=== PATIENT | male | born 1965 | race American Indian/Alaskan Native ===

== ENCOUNTER 2019-06-26 15:47 | Observation (INO) | payer OTHER ==
[2019-06-26 17:04] LABS: Basophils # (Auto) 0.1 K/mm3 (0.0-0.1); Basophils % (Auto) 1.3 % (0.0-1.8); Eosinophils # (Auto) 0.3 K/mm3 (0.0-0.4); Eosinophils % (Auto) 2.8 % (0.0-4.3); Hematocrit 22.5 % (35.5-45.6); Hemoglobin 7.8 gm/dl (11.8-15.2); Lymphocytes # (Auto) 2.1 K/mm3 (1.2-5.4); Lymphocytes % (Auto) 22.8 % (13.4-35.0); Mean Corpuscular HGB Conc 35 % (32-34); Mean Corpuscular Volume 103 fl (84-94); Monocytes # (Auto) 0.7 K/mm3 (0.0-0.8); Monocytes % (Auto) 8.1 % (0.0-7.3); Platelet Count 313 K/mm3 (140-440); Red Blood Count 2.18 M/mm3 (3.65-5.03); Red Cell Distribution Width 15.7 % (13.2-15.2)
[2019-06-26 17:26] LABS: Calcium 9.3 mg/dL (8.4-10.2)
[2019-06-26] MEDS ORDERED: PANTOPRAZOLE 40 MG INJ IV ONE (18:16)
--- NOTE | 2019-06-26 18:17 | Emergency Department Report ---
ED General Adult HPI - General Chief complaint: GI Bleed Stated complaint: BLACK BM Time Seen by Provider: 06/26/19 18:04 Source: patient, RN notes reviewed, old records reviewed Mode of arrival: Ambulatory Limitations: No Limitations - History of Present Illness Initial comments: Patient is a 53-year-old gentleman. He is not known to myself previously. He does not have a primary care doctor. 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 He presents to the ER today with a complaint of painless black tarry stool, x1 week, lightheadedness, dizziness, near syncope. He denies physical pain at this time. He takes aspirin occasionally, but denies alcohol use, NSAID use, and systemic anticoagulation. He is never had an endoscopy before that he is aware of. He typically receives hemodialysis Saturday, Saturday, Saturday. He had hemodialysis today as per his verbal report. He was sent here for evaluation of hemoglobin of 6.6. Symptoms intermittent, painless, do not radiate anywhere, and do not have exacerbating or relieving factors that he is aware of. There is no complaint of headache, neck pain, chest pain, abdominal pain. He is still lightheaded, feels tired and fatigued, and occasionally has shortness of breath. He is producing urine, and denies urinary symptoms. There is no complaint of extremity weakness and or numbness. -: Gradual, days(s) Severity scale (0 -10): 0 Quality: other Consistency: other Improves with: other Worsens with: other Associated Symptoms: other - Related Data Home Medications Medication Instructions Recorded Confirmed Last Taken amLODIPine 5 mg PO DAILY 10/24/18 10/24/18 10/23/18 Previous Rx's Medication Instructions Recorded Last Taken Type Acetaminophen [Acetaminophen TAB] 650 mg PO Q4H PRN tablet 11/01/18 Unknown Rx Fluconazole [Diflucan TAB] 100 mg PO QDAY #7 tablet 11/01/18 Unknown Rx Sodium Bicarbonate 1,300 mg PO TID #90 tablet 11/01/18 Unknown Rx hydrALAZINE [Apresoline TAB] 25 mg PO Q8HR #60 tab 11/01/18 Unknown Rx Allergies Allergy/AdvReac Type Severity Reaction Status Date / Time No Known Allergies Allergy Verified 06/26/19 15:51 ED Review of Systems ROS: Stated complaint: BLACK BM Other details as noted in HPI Constitutional: malaise, weakness. denies: fever Eyes: denies: eye discharge, vision change ENT: denies: congestion Respiratory: shortness of breath. denies: cough, wheezing Cardiovascular: syncope (Near syncope, but no actual loss of conscious). denies: chest pain Gastrointestinal: melena. denies: abdominal pain, nausea, vomiting, diarrhea, constipation, hematemesis, hematochezia Genitourinary: as per HPI. denies: urgency Musculoskeletal: as per HPI Skin: as per HPI Neurological: as per HPI, weakness Psychiatric: as per HPI Hematological/Lymphatic: as per HPI. denies: easy bleeding ED Past Medical Hx - Past Medical History Hx Hypertension: Yes Hx Congestive Heart Failure: Yes Hx HIV: No Additional medical history: ESRD - Social History Smoking Status: Never Smoker Substance Use Type: None - Medications Home Medications: Home Medications Medication Instructions Recorded Confirmed Last Taken Type amLODIPine 5 mg PO DAILY 10/24/18 10/24/18 10/23/18 History Acetaminophen [Acetaminophen TAB] 650 mg PO Q4H PRN tablet 11/01/18 Unknown Rx Fluconazole [Diflucan TAB] 100 mg PO QDAY #7 tablet 11/01/18 Unknown Rx Sodium Bicarbonate 1,300 mg PO TID #90 tablet 11/01/18 Unknown Rx hydrALAZINE [Apresoline TAB] 25 mg PO Q8HR #60 tab 11/01/18 Unknown Rx ED Physical Exam - General Limitations: No Limitations General appearance: alert, anxious - Head Head exam: Present: atraumatic, normocephalic - Eye Eye exam: Present: normal appearance (Bilateral conjunctiva are pale), PERRL, EOMI, other (Visual acuity intact to finger counting, color perception, reading at a close distance). Absent: conjunctival injection, nystagmus - ENT ENT exam: Present: normal exam, normal orophraynx, mucous membranes moist, normal external ear exam - Neck Neck exam: Present: normal inspection, full ROM. Absent: tenderness, meningismus - Respiratory Respiratory exam: Present: normal lung sounds bilaterally. Absent: respiratory distress - Cardiovascular Cardiovascular Exam: Present: normal rhythm, tachycardia, normal heart sounds. Absent: systolic murmur, diastolic murmur, rubs, gallop - GI/Abdominal GI/Abdominal exam: Present: soft. Absent: distended, tenderness, guarding, rebound, rigid, pulsatile mass - Rectal Rectal exam: Present: normal inspection, normal rectal tone, heme (+) stool, black stool, other (Chaperoned by nurse Aren Sibley). Absent: bloody stool, fecal impaction, hemorrhoids, mass, tenderness, prostate tenderness, prostate enlargement - Extremities Exam Extremities exam: Present: normal inspection (Left upper extremity fistula, without redness, pus, streaking or tenderness), full ROM, other (2+ pulses noted in the bilateral upper and lower extremities. There is no palpable cord. nega tive Homans sign. Muscular compartments are soft. The pelvis is stable.). Absent: pedal edema, calf tenderness - Back Exam Back exam: Present: normal inspection, full ROM. Absent: tenderness, CVA tenderness (R), CVA tenderness (L), paraspinal tenderness, vertebral tenderness - Neurological Exam Neurological exam: Present: alert, normal gait, other (No facial droop. Tongue midline. Extraocular movements intact bilaterally. Facial sensation intact to light touch in V1, V2, V3 distribution bilaterally. 5 and a 5 strength in 4 extremities. Sensation intact to light touch in 4 extremities.). Absent: motor sensory deficit - Psychiatric Psychiatric exam: Present: anxious - Skin Skin exam: Present: warm, dry, intact, normal color. Absent: rash ED Course Vital Signs 06/26/19 15:56 Temperature 97.6 F Pulse Rate 101 H Respiratory 13 Rate Blood Pressure 146/87 [Left] O2 Sat by Pulse 96 Oximetry ED Medical Decision Making - Lab Data Result diagrams: 06/26/19 16:13 06/26/19 16:13 Vital Signs 06/26/19 15:56 Temperature 97.6 F Pulse Rate 101 H Respiratory 13 Rate Blood Pressure 146/87 [Left] O2 Sat by Pulse 96 Oximetry Lab Results 06/26/19 06/26/19 Range/Units 16:13 16:13 WBC 9.2 (4.5-11.0) K/mm3 RBC 2.18 L (3.65-5.03) M/mm3 Hgb 7.8 L (11.8-15.2) gm/dl Hct 22.5 L (35.5-45.6) % MCV 103 H (84-94) fl MCH 36 H (28-32) pg MCHC 35 H (32-34) % RDW 15.7 H (13.2-15.2) % Plt Count 313 (140-440) K/mm3 Lymph % (Auto) 22.8 (13.4-35.0) % [place] % (Auto) 8.1 H (0.0-7.3) % Eos % (Auto) 2.8 (0.0-4.3) % Baso % (Auto) 1.3 (0.0-1.8) % Lymph # 2.1 (1.2-5.4) K/mm3 [place] # 0.7 (0.0-0.8) K/mm3 Eos # 0.3 (0.0-0.4) K/mm3 Baso # 0.1 (0.0-0.1) K/mm3 Seg Neutrophils % 65.0 (40.0-70.0) % Seg Neutrophils # 6.0 (1.8-7.7) K/mm3 Sodium 138 (137-145) mmol/L Potassium 3.7 (3.6-5.0) mmol/L Chloride 102.2 (98-107) mmol/L Carbon Dioxide 21 L (22-30) mmol/L Anion Gap 19 mmol/L BUN 17 (9-20) mg/dL Creatinine 4.1 H (0.8-1.5) mg/dL Estimated GFR 19 ml/min BUN/Creatinine Ratio 4 % Glucose 99 (75-100) mg/dL Calcium 9.3 (8.4-10.2) mg/dL - EKG Data -: EKG Interpreted by Ak EKG shows normal: sinus rhythm Rate: normal - EKG Data 06/26/19 18:39 EKG today shows sinus rhythm, 79 bpm, left ventricular hypertrophy, normal axis, QTC within normal limits, T wave inversion V2, poor R wave progression, motion artifact, negatively deflected QRS complex V4, the EKG is abnormal, there is no endorsement of chest pain, nonspecific changes when compared to prior, the EKG is not consistent with a STEMI - Radiology Data Radiology results: pending - Medical Decision Making Differential diagnosis, including but not limited to: GERD, gastritis, upper GI bleed, dysfunctional platelets Assessment and plan: 53-year-old gentleman who is afebrile with reassuring vital signs, clinically sober with a benign exam, dark brown/black stool that is strongly guaiac positive, with history and physical suggestive of upper GI bleed. Patient will be started on Protonix and desmopressin. Discussed with gastroenterology, Dr. Calvo, whose group will follow in consultation. We discussed the patient's history, physical, examination, and pertinent laboratory studies. Discussed with Dr. Langley, nephrology on-call, discussed patient's history, physical, pertinent laboratory studies and physical findings. Both of the aforementioned consultants will follow in consultation. Case presented to hospital physician, Dr. Marcelina Goss, who has accepted the patient to the medical service. Discussed plan of care for admission with the patient, who verbalized understanding, and who is amenable to this plan of care. Critical care attestation.: If time is entered above; I have spent that time in minutes in the direct care of this critically ill patient, excluding procedure time. ED Disposition Clinical Impression: UGIB (upper gastrointestinal bleed), Guaiac + stool, ESRD (end stage renal disease) Disposition: OP ADMIT IP TO THIS HOSP Is pt being admited?: Yes Does the pt Need Aspirin: No Condition: Serious Referrals: PRIMARY CARE,MD [Primary Care Provider] - 3-5 Days Forms: Accompanied Note
[2019-06-26] MEDS ORDERED: DESMOPRESSIN ACETATE IV ONE (18:30)
[2019-06-26] MEDS ORDERED: SODIUM CHLORIDE 0.9% IV ONE (18:30)
--- NOTE | 2019-06-26 18:58 | XRay Report ---
CHEST 1 VIEW INDICATION / CLINICAL INFORMATION: ugib near syncope. COMPARISON: 10/24/2018 FINDINGS: SUPPORT DEVICES: None. HEART / MEDIASTINUM: No significant abnormality. LUNGS / PLEURA: No significant pulmonary or pleural abnormality. No pneumothorax. ADDITIONAL FINDINGS: No significant additional findings. IMPRESSION: 1. No acute findings. Signer Name: Miguel Richards MD Signed: 06/26/2019 6:53 PM Workstation Name: [id number]
[2019-06-26 19:17] LABS: INR 1.04 (0.87-1.13)
[2019-06-26 19:18] LABS: Partial Thromboplastin Time 28.2 Sec. (24.2-36.6)
[2019-06-26] MEDS ORDERED: ONDANSETRON 4 MG/2 ML INJ IV PRN (23:53)
[2019-06-26] MEDS ORDERED: HYDROmorphone 1 MG/1 ML INJ IV PRN (23:53)
[2019-06-26] MEDS ORDERED: ACETAMINOPHEN 325 MG TAB PO PRN (23:53)
[2019-06-27 01:05] LABS: Hematocrit 20.6 % (35.5-45.6); Hemoglobin 7.1 gm/dl (11.8-15.2)
[2019-06-27] MEDS: PANTOPRAZOLE 80 MG in SODIUM CHLORIDE 0.9% 100 ML IV SCH ×2 (01:20→10:41)
--- NOTE | 2019-06-27 08:08 | Consultation ---
History of Present Illness - Reason for Consult Consult date: 06/27/19 end stage renal disease Requesting physician: GEORGINA FOSTER - History of Present Illness Patient is a 53-year-old gentleman. He is not known to myself previously. He does not have a primary care doctor. 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 He presents to the ER today with a complaint of painless black tarry stool, x1 week, lightheadedness, dizziness, near syncope. He denies physical pain at this time. He takes aspirin occasionally, but denies alcohol use, NSAID use, and systemic anticoagulation. He is never had an endoscopy before that he is aware of. He typically receives hemodialysis Saturday, Saturday, Saturday. He had hemodialysis today as per his verbal report. He was sent here for evaluation of hemoglobin of 6.6. Symptoms intermittent, painless, do not radiate anywhere, and do not have exacerbating or relieving factors that he is aware of. There is no complaint of headache, neck pain, chest pain, abdominal pain. He is still lightheaded, feels tired and fatigued, and occasionally has shortness of breath. He is producing urine, and denies urinary symptoms. There is no complaint of extremity weakness and or numbness. -: Gradual, days(s) Severity scale (0 -10): 0 Quality: other Consistency: other Improves with: other Worsens with: other Associated Symptoms: other ROS: Stated complaint: BLACK BM Other details as noted in HPI Constitutional: malaise, weakness. denies: fever Eyes: denies: eye discharge, vision change ENT: denies: congestion Respiratory: shortness of breath. denies: cough, wheezing Cardiovascular: syncope (Near syncope, but no actual loss of conscious). denies: chest pain Gastrointestinal: melena. denies: abdominal pain, nausea, vomiting, diarrhea, constipation, hematemesis, hematochezia Genitourinary: as per HPI. denies: urgency Musculoskeletal: as per HPI Skin: as per HPI Neurological: as per HPI, weakness Psychiatric: as per HPI Hematological/Lymphatic: as per HPI. denies: easy bleeding - Past Medical History Hx Hypertension: Yes Hx Congestive Heart Failure: Yes Hx HIV: No Additional medical history: ESRD - Social History Smoking Status: Never Smoker Substance Use Type: None Medications and Allergies Allergies Allergy/AdvReac Type Severity Reaction Status Date / Time No Known Allergies Allergy Verified 06/26/19 15:51 Home Medications Medication Instructions Recorded Confirmed Last Taken Type amLODIPine 5 mg PO DAILY 10/24/18 06/27/19 06/03/19 History Acetaminophen [Acetaminophen TAB] 650 mg PO Q4H PRN tablet 11/01/18 06/27/19 06/25/19 Rx Fluconazole [Diflucan TAB] 100 mg PO QDAY #7 tablet 11/01/18 06/27/19 Unknown Rx Sodium Bicarbonate 1,300 mg PO TID #90 tablet 11/01/18 06/27/19 06/03/19 Rx hydrALAZINE [Apresoline TAB] 25 mg PO Q8HR #60 tab 11/01/18 06/27/19 06/03/19 Rx Active Meds: Active Medications Acetaminophen (Tylenol) 650 mg PO Q4H PRN PRN Reason: Pain MILD(1-3)/Fever >100.5/RAMIREZ Hydromorphone HCl (Dilaudid) 0.5 mg IV Q3H PRN PRN Reason: Pain , Severe (7-10) Pantoprazole Sodium 80 mg/ (Sodium Chloride) 100 mls @ 10 mls/hr IV DIRECT [facility] Last Admin: 06/27/19 01:20 Dose: 8 mg/hr, 10 mls/hr Documented by: Ondansetron HCl (Zofran) 4 mg IV Q8H PRN PRN Reason: Nausea And Vomiting Sodium Chloride (Sodium Chloride Flush Syringe 10 Ml) 10 ml IV BID [facility] Last Admin: 06/27/19 01:31 Dose: 10 ml Documented by: Sodium Chloride (Sodium Chloride Flush Syringe 10 Ml) 10 ml IV PRN PRN PRN Reason: LINE FLUSH Exam - Vital Signs Vital signs: Vital Signs Temp Pulse Resp BP Pulse Ox 97.6 F 101 H 13 146/87 96 06/26/19 15:56 06/26/19 15:56 06/26/19 15:56 06/26/19 15:56 06/26/19 15:56 - Physical Exam Narrative exam: - General Limitations: No Limitations General appearance: alert, anxious - Head Head exam: Present: atraumatic, normocephalic - Eye Eye exam: Present: normal appearance (Bilateral conjunctiva are pale), PERRL, EOMI, other (Visual acuity intact to finger counting, color perception, reading at a close distance). Absent: conjunctival injection, nystagmus - ENT ENT exam: Present: normal exam, normal orophraynx, mucous membranes moist, normal external ear exam - Neck Neck exam: Present: normal inspection, full ROM. Absent: tenderness, meningismus - Respiratory Respiratory exam: Present: normal lung sounds bilaterally. Absent: respiratory distress - Cardiovascular Cardiovascular Exam: Present: normal rhythm, tachycardia, normal heart sounds. Absent: systolic murmur, diastolic murmur, rubs, gallop - GI/Abdominal GI/Abdominal exam: Present: soft. Absent: distended, tenderness, guarding, rebound, rigid, pulsatile mass - Rectal Rectal exam: Present: normal inspection, normal rectal tone, heme (+) stool, black stool, other (Chaperoned by nurse Aren Sibley). Absent: bloody stool, fecal impaction, hemorrhoids, mass, tenderness, prostate tenderness, prostate enlargement - Extremities Exam Extremities exam: Present: normal inspection (Left upper extremity fistula, without redness, pus, streaking or tenderness), full ROM, other (2+ pulses noted in the bilateral upper and lower extremities. There is no palpable cord. negative Homans sign. Muscular compartments are soft. The pelvis is stable.). Absent: pedal edema, calf tenderness - Back Exam Back exam: Present: normal inspection, full ROM. Absent: tenderness, CVA tenderness (R), CVA tenderness (L), paraspinal tenderness, vertebral tenderness - Neurological Exam Neurological exam: Present: alert, normal gait, other (No facial droop. Tongue midline. Extraocular movements intact bilaterally. Facial sensation intact to light touch in V1, V2, V3 distribution bilaterally. 5 and a 5 strength in 4 extremities. Sensation intact to light touch in 4 extremities.). Absent: motor sensory deficit - Psychiatric Psychiatric exam: Present: anxious Results - Lab Results 06/27/19 00:38 06/26/19 16:13 Most recent lab results Calcium 9.3 mg/dL (8.4-10.2) 06/26/19 16:13 Magnesium 2.00 mg/dL (1.7-2.3) 06/26/19 18:35 Assessment and Plan IMpression: * ESRD * anemia abl poa * HTN * gi bleeding Plan: * resume hd q MWF * no heparin with HD * epogen with HD * prn prbcs * uf as tolerated * strict i/os * Gi consultation
[2019-06-27] MEDS ORDERED: SODIUM CHLORIDE 0.9% 100 ML IV PRN (08:12)
[2019-06-27] MEDS ORDERED: EPOETIN ALFA 20,000 UNIT/1 ML INJ IV PRN (08:12)
[2019-06-27] MEDS ORDERED: ALBUMIN HUMAN 25% (25 GM/100 ML) INJ IV PRN (08:12)
--- NOTE | 2019-06-27 08:12 | Event Note ---
Date: 06/26/19 See H/p in reports GI BLeed ESRD
--- NOTE | 2019-06-27 08:14 | Progress Note ---
Assessment and Plan Assessment and plan: Patient is a 53 yo man with a history of hypertension and ESRD on HD MWF s/p renal biopsy on 10/29/2018 (I do not see pathology report in EMR but Dr. Davis's progress note on 10/30/2018 says "Discussed with pathologist biopsy with some concern for cryoglobulinemia however 85% interstitial fibrosis and a ppears to be end stage kidney cannot rule out autoimmune aetiology versus paraproteinemias.) who presents to [facility] ER with black tarry stools and lightheadedness. At HD center his hemoglobin was report to be 6.6. He was admitted on 06/26/[address] Goss. * hgb 7.8-->7.1 (mcv 103), Cr 4.1, normal PT/PTT * +FOBT stool * pCXR Impression: No acute findings Symptomatic Acute on chronic anemia with blood loss anemia : consulted GI Acute GIB, suspect upper gi: treat with IV PPI ESRD on HD: consulted Nephrology History Interval history: Patient was seen and examined. Follow-up on current diagnosis acute blood loss anemia. Overnight uneventful as no events directly reported to me. Patient denies any chest pain, shortness breath, nausea/vomiting or severe headaches. Imaging, nursing note, chart, labs and old chart reviewed. Discussed with patient. Hospitalist Physical - Physical exam Narrative exam: Gen: WDWN, NAD, Awake, Alert, Orientated HEENT: NCAT, EOMI, PERRL, OP Clear Neck: supple, no adenopathy, no thyromegaly, no JVD CVS/Heart: RRR, normal S1S2, pulses present bilaterally Chest/Lungs: CTA B, Symmetrical chest expansion, good air entry bilaterally GI/Abdomen: soft, NTND, good bowel sounds, no guarding or rebound /Bladder: no suprapubic tenderness, no CVA or paraspinal tenderness Extermity/Skin: no c/c/e, no obvious rash MSK: FROM x 4 Neuro: CN 2-12 grossly intact, no new focal deficits Psych: calm - Constitutional Vitals: Temp Pulse Resp BP Pulse Ox 98.3 F 79 16 120/79 100 06/27/19 03:21 06/27/19 06:08 06/27/19 03:21 06/27/19 03:21 06/27/19 03:21 Results - Labs CBC & Chem 7: 06/27/19 00:38 06/26/19 16:13 Labs: Laboratory Last Values WBC 9.2 K/mm3 (4.5-11.0) 06/26/19 16:13 RBC 2.18 M/mm3 (3.65-5.03) L 06/26/19 16:13 Hgb 7.1 gm/dl (11.8-15.2) L 06/27/19 00:38 Hct 20.6 % (35.5-45.6) L 06/27/19 00:38 MCV 103 fl (84-94) H 06/26/19 16:13 MCH 36 pg (28-32) H 06/26/19 16:13 MCHC 35 % (32-34) H 06/26/19 16:13 RDW 15.7 % (13.2-15.2) H 06/26/19 16:13 Plt Count 313 K/mm3 (140-440) 06/26/19 16:13 Lymph % (Auto) 22.8 % (13.4-35.0) 06/26/19 16:13 [place] % (Auto) 8.1 % (0.0-7.3) H 06/26/19 16:13 Eos % (Auto) 2.8 % (0.0-4.3) 06/26/19 16:13 Baso % (Auto) 1.3 % (0.0-1.8) 06/26/19 16:13 Lymph # 2.1 K/mm3 (1.2-5.4) 06/26/19 16:13 [place] # 0.7 K/mm3 (0.0-0.8) 06/26/19 16:13 Eos # 0.3 K/mm3 (0.0-0.4) 06/26/19 16:13 Baso # 0.1 K/mm3 (0.0-0.1) 06/26/19 16:13 Seg Neutrophils % 65.0 % (40.0-70.0) 06/26/19 16:13 Seg Neutrophils # 6.0 K/mm3 (1.8-7.7) 06/26/19 16:13 PT 13.7 Sec. (12.2-14.9) 06/26/19 18:35 INR 1.04 (0.87-1.13) 06/26/19 18:35 APTT 28.2 Sec. (24.2-36.6) 06/26/19 18:35 Sodium 138 mmol/L (137-145) 06/26/19 16:13 Potassium 3.7 mmol/L (3.6-5.0) 06/26/19 16:13 Chloride 102.2 mmol/L (98-107) 06/26/19 16:13 Carbon Dioxide 21 mmol/L (22-30) L 06/26/19 16:13 Anion Gap 19 mmol/L 06/26/19 16:13 BUN 17 mg/dL (9-20) 06/26/19 16:13 Creatinine 4.1 mg/dL (0.8-1.5) H 06/26/19 16:13 Estimated GFR 19 ml/min 06/26/19 16:13 BUN/Creatinine Ratio 4 % 06/26/19 16:13 Glucose 99 mg/dL (75-100) 06/26/19 16:13 Calcium 9.3 mg/dL (8.4-10.2) 06/26/19 16:13 Magnesium 2.00 mg/dL (1.7-2.3) 06/26/19 18:35 Total Creatine Kinase 209 units/L (55-170) H 06/26/19 18:35 Blood Type AB POSITIVE 06/26/19 18:35 Antibody Screen Negative 06/26/19 18:35 Microbiology: Microbiology 06/26/19 Unknown Stool - Stool Aspirate Stool Occult Blood (RIDDHI) - Final Chinchilla/IV: Voiding Method Indwelling Catheter IV Catheter Type [Left Chest] Peripheral IV Active Medications - Current Medications Current Medications: Generic Name Dose Route Start Last Admin Trade Name Freq PRN Reason Stop Dose Admin Acetaminophen 650 mg 06/26/19 23:53 Tylenol PO Q4H PRN Pain MILD(1-3)/Fever >100.5/RAMIREZ Hydromorphone HCl 0.5 mg 06/26/19 23:53 Dilaudid IV Q3H PRN Pain , Severe (7-10) Pantoprazole Sodium 80 mg/ 100 mls @ 10 mls/hr 06/26/19 23:45 06/27/19 01:20 Sodium Chloride IV 8 mg/hr DIRECT ESTER 10 mls/hr Administration 8 MG/HR Ondansetron HCl 4 mg 06/26/19 23:53 Zofran IV Q8H PRN Nausea And Vomiting Sodium Chloride 10 ml 06/26/19 23:45 06/27/19 01:31 Sodium Chloride Flush Syringe 10 Ml IV 10 ml BID ESTER Administration Sodium Chloride 10 ml 06/26/19 23:53 Sodium Chloride Flush Syringe 10 Ml IV PRN PRN LINE FLUSH
--- NOTE | 2019-06-27 09:26 | History and Physical Report ---
CHIEF COMPLAINT: Black stools for 1 day. HISTORY OF PRESENT ILLNESS: A 53-year-old male ____ end-stage renal disease and hypertension, comes in for black tarry stools of 1 day duration. Also, complains of lightheadedness, dizziness and near syncope. He takes aspirin occasionally. Denies any alcohol use or anti-inflammatory use. Never had endoscopy and never had a GI bleed in the past. Goes for dialysis on Saturday, Saturday and Saturday. His nephrology group is [facility] (formerly [facility]). The patient was sent for evaluation of hemoglobin of 6.6. The patient feels lightheaded and feels very weak and fatigued. The patient has ____ urine and has no urinary symptoms. No chest pain. No shortness of breath. PAST MEDICAL HISTORY: As mentioned, hypertension, congestive heart failure and end-stage renal disease. SOCIAL HISTORY: Never a smoker. PAST SURGICAL HISTORY: AV fistula. FAMILY HISTORY: Hypertension. CURRENT MEDICATIONS: Amlodipine 5 mg once a day, hydralazine 25 mg p.o. q.8 hours, Diflucan 100 mg once a day, sodium bicarbonate 1300 mg p.o. t.i.d. REVIEW OF SYSTEMS: Significant for black tarry stools and feeling weak and lightheaded and near syncope. Otherwise, review of systems negative. PHYSICAL EXAMINATION: GENERAL: Middle-aged male, cooperative during examination. VITAL SIGNS: Blood pressure is 129/76, temperature is 98.6, pulse is 76, respirations are 16. HEENT: Pale mucous membranes. NECK: Supple, no lymphadenopathy, no thyromegaly. LUNGS: Clear to auscultation and percussion. Good air entry. CARDIOVASCULAR: S1, S2 heard. No gallop, no murmur, no rub. Apical impulse in left fifth intercostal space and midclavicular line. ABDOMEN: Soft and benign. RECTAL: Positive for occult blood. Bowel sounds are normal. EXTREMITIES: Good pedal pulses. CENTRAL NERVOUS SYSTEM: Alert and oriented x 4, nonfocal exam. LABORATORY DATA: Significant for H and H of 7.8 and 22.5. White count of 9200, platelet count is 313,000. Electrolytes are normal except for BUN and creatinine of ____ 17 and 4.1. Total CK is 209. Chest x-ray was normal. ASSESSMENT AND PLAN: 1. Upper gastrointestinal bleed. The patient started on Protonix drip. H and H q. 8 hours. GI consult. Possible endoscopy in the morning. 2. End-stage renal disease. Continue hemodialysis. The patient is kept n.p.o. for the GI procedure. 3. Acute anemia, transfuse as necessary. Check H and H q. 8 hours. Transfuse if around 7 and below. 4. Hypertension. We will hold the blood pressure medication as blood pressure is borderline. If blood pressure goes up, we will start him on Catapres patch. At this point, I did not start the Catapres patch because the blood pressure is borderline. 5. Deep venous thrombosis prophylaxis, only SCDs and gastrointestinal prophylaxis. JOB# [id number] MARCELO/KAMILLA
[2019-06-27 10:53] LABS: Albumin 3.6 g/dL (3.9-5); Calcium 8.8 mg/dL (8.4-10.2)
[2019-06-27 10:55] LABS: % Iron Saturation 23.04 %
[2019-06-27 10:57] LABS: Basophils # (Auto) 0.1 K/mm3 (0.0-0.1); Basophils % (Auto) 1.3 % (0.0-1.8); Eosinophils # (Auto) 0.2 K/mm3 (0.0-0.4); Eosinophils % (Auto) 3.5 % (0.0-4.3); Hematocrit 20.3 % (35.5-45.6); Lymphocytes # (Auto) 1.2 K/mm3 (1.2-5.4); Lymphocytes % (Auto) 20.7 % (13.4-35.0); Mean Corpuscular HGB Conc 35 % (32-34); Mean Corpuscular Volume 104 fl (84-94); Monocytes # (Auto) 0.5 K/mm3 (0.0-0.8); Platelet Count 268 K/mm3 (140-440); Red Cell Distribution Width 15.4 % (13.2-15.2)
[2019-06-27 11:06] LABS: Hepatitis C Virus Antibody Non-Reactive (NonReactive)
[2019-06-27 11:16] LABS: Red Blood Count 1.95 M/mm3 (3.65-5.03)
[2019-06-27 12:02] LABS: Hepatitis B Surface Antigen Non-Reactive (Negative)
--- NOTE | 2019-06-27 12:25 | Gastroenterology Consultation ---
History of Present Illness - Reason for Consult Consult date: 06/27/19 Melena Requesting physician: JOHANNY RIVERA - History of Present Illness The patient is a 53 yo male admitted with melena x 1 week, and acute on chronic anemia. He says about 7 days ago his stools turned black, but did not change in frequency (1-2/day). He has had no emesis, or N/V/abdominal pain. He denies prior endoscopy or transfusion, and no prior hx of GI bleeding. He is not sure why he was started on HD last year (but biopsy looks like glomerulonephritis). He has no family hx of GI malignancy. He does not take chronic PPI therapy and denies GERD sx. He has not had any recent weight loss, and says he is compliant with HD. Past History Past Medical History: ESRD (On TIW HD), hypertension Past Surgical History: Other (Vascular for HD) Social history: denies: smoking, alcohol abuse Family history: hypertension Medications and Allergies Allergies Allergy/AdvReac Type Severity Reaction Status Date / Time No Known Allergies Allergy Verified 06/26/19 15:51 Home Medications Medication Instructions Recorded Confirmed Last Taken Type amLODIPine 5 mg PO DAILY 10/24/18 06/27/19 06/03/19 History Acetaminophen [Acetaminophen TAB] 650 mg PO Q4H PRN tablet 11/01/18 06/27/19 Rx Fluconazole [Diflucan TAB] 100 mg PO QDAY #7 tablet 11/01/18 06/27/19 Unknown Rx Sodium Bicarbonate 1,300 mg PO TID #90 tablet 11/01/18 06/27/19 06/03/19 Rx hydrALAZINE [Apresoline TAB] 25 mg PO Q8HR #60 tab 11/01/18 06/27/19 06/03/19 Rx Active Meds: Active Medications Acetaminophen (Tylenol) 650 mg PO Q4H PRN PRN Reason: Pain MILD(1-3)/Fever >100.5/RAMIREZ Albumin Human (Alburx 25% (Albumin)) 25 gm IV CANDI PRN PRN Reason: Hypotension Epoetin West (Procrit) 20,000 unit IV CANDI PRN PRN Reason: hemodialysis Hydromorphone HCl (Dilaudid) 0.5 mg IV Q3H PRN PRN Reason: Pain , Severe (7-10) Pantoprazole Sodium 80 mg/ (Sodium Chloride) 100 mls @ 10 mls/hr IV DIRECT [facility] Last Admin: 06/27/19 10:41 Dose: 8 mg/hr, 10 mls/hr Documented by: Sodium Chloride (Nacl 0.9%) 100 mls @ 999 mls/hr IV CANDI PRN PRN Reason: Hypotension Ondansetron HCl (Zofran) 4 mg IV Q8H PRN PRN Reason: Nausea And Vomiting Sodium Chloride (Sodium Chloride Flush Syringe 10 Ml) 10 ml IV BID [facility] Last Admin: 06/27/19 10:42 Dose: 10 ml Documented by: Sodium Chloride (Sodium Chloride Flush Syringe 10 Ml) 10 ml IV PRN PRN PRN Reason: LINE FLUSH I HAVE REVIEWED AND RECONCILED MEDICATIONS Review of Systems - Review of Systems All systems: negative (as noted in the HPI.) Exam - Constitutional Vital Signs: Temp Pulse Resp BP Pulse Ox 98.6 F 84 18 112/63 100 06/27/19 09:52 06/27/19 09:52 06/27/19 09:52 06/27/19 09:52 06/27/19 03:21 General appearance: no acute distress - EENT Eyes: PERRL, EOM intact ENT: hearing intact, clear oral mucosa, poor dentition - Neck Neck: supple, normal ROM - Respiratory Respiratory effort: normal Respiratory: bilateral: CTA - Cardiovascular Rhythm: regular Heart Sounds: Present: S1 & S2 - Gastrointestinal General gastrointestinal: Present: soft, non-tender, non-distended Rectal Exam: stool dark - Integumentary Integumentary: Present: clear, warm, dry - Neurologic Neurological: alert and oriented x3 - Labs CBC & Chem 7: 06/27/19 10:05 06/27/19 10:05 Lab Results: Laboratory Results - last 24 hr 06/26/19 06/26/19 06/26/19 16:13 16:13 18:35 WBC 9.2 RBC 2.18 L Hgb 7.8 L Hct 22.5 L MCV 103 H MCH 36 H MCHC 35 H RDW 15.7 H Plt Count 313 Lymph % (Auto) 22.8 [place] % (Auto) 8.1 H Eos % (Auto) 2.8 Baso % (Auto) 1.3 Lymph # 2.1 [place] # 0.7 Eos # 0.3 Baso # 0.1 Seg Neutrophils % 65.0 Seg Neutrophils # 6.0 PT 13.7 INR 1.04 APTT 28.2 Sodium 138 Potassium 3.7 Chloride 102.2 Carbon Dioxide 21 L Anion Gap 19 BUN 17 Creatinine 4.1 H Estimated GFR 19 BUN/Creatinine Ratio 4 Glucose 99 Calcium 9.3 Magnesium Iron TIBC % Saturation Transferrin Total Bilirubin AST ALT Alkaline Phosphatase Total Creatine Kinase Total Protein Albumin Albumin/Globulin Ratio Hepatitis A IgM Ab Hep Bs Antigen Hep B Core IgM Ab Hepatitis C Antibody Blood Type Antibody Screen 06/26/19 06/26/19 06/27/19 18:35 18:35 00:38 WBC RBC Hgb 7.1 L Hct 20.6 L MCV MCH MCHC RDW Plt Count Lymph % (Auto) [place] % (Auto) Eos % (Auto) Baso % (Auto) Lymph # [place] # Eos # Baso # Seg Neutrophils % Seg Neutrophils # PT INR APTT Sodium Potassium Chloride Carbon Dioxide Anion Gap BUN Creatinine Estimated GFR BUN/Creatinine Ratio Glucose Calcium Magnesium 2.00 Iron TIBC % Saturation Transferrin Total Bilirubin AST ALT Alkaline Phosphatase Total Creatine Kinase 209 H Total Protein Albumin Albumin/Globulin Ratio Hepatitis A IgM Ab Hep Bs Antigen Hep B Core IgM Ab Hepatitis C Antibody Blood Type AB POSITIVE Antibody Screen Negative 06/27/19 06/27/19 06/27/19 10:05 10:05 10:05 WBC 5.6 RBC 1.95 L Hgb 7.0 L Hct 20.3 L MCV 104 H MCH 36 H MCHC 35 H RDW 15.4 H Plt Count 268 Lymph % (Auto) 20.7 [place] % (Auto) 8.0 H Eos % (Auto) 3.5 Baso % (Auto) 1.3 Lymph # 1.2 [place] # 0.5 Eos # 0.2 Baso # 0.1 Seg Neutrophils % 66.5 Seg Neutrophils # 3.7 PT INR APTT Sodium 139 Potassium 4.2 Chloride 103.2 Carbon Dioxide 27 Anion Gap 13 BUN 24 H Creatinine 5.6 H Estimated GFR 13 BUN/Creatinine Ratio 4 Glucose 94 Calcium 8.8 Magnesium Iron 44 L TIBC 191 L % Saturation 23.04 Transferrin 163 L Total Bilirubin 0.30 AST 17 ALT 10 Alkaline Phosphatase 45 Total Creatine Kinase Total Protein 7.0 Albumin 3.6 L Albumin/Globulin Ratio 1.1 Hepatitis A IgM Ab Hep Bs Antigen Hep B Core IgM Ab Hepatitis C Antibody Blood Type Antibody Screen 06/27/19 10:05 WBC RBC Hgb Hct MCV MCH MCHC RDW Plt Count Lymph % (Auto) [place] % (Auto) Eos % (Auto) Baso % (Auto) Lymph # [place] # Eos # Baso # Seg Neutrophils % Seg Neutrophils # PT INR APTT Sodium Potassium Chloride Carbon Dioxide Anion Gap BUN Creatinine Estimated GFR BUN/Creatinine Ratio Glucose Calcium Magnesium Iron TIBC % Saturation Transferrin Total Bilirubin AST ALT Alkaline Phosphatase Total Creatine Kinase Total Protein Albumin Albumin/Globulin Ratio Hepatitis A IgM Ab Non-reactive Hep Bs Antigen Non-reactive Hep B Core IgM Ab Non-reactive Hepatitis C Antibody Non-reactive Blood Type Antibody Screen Assessment and Plan - Patient Problems (1) Melena Current Visit: Yes Status: Acute Plan to address problem: - Likely PUD v gastritis. - Will plan EGD, and continue current PPI therapy. - Avoid NSAIDs for now. - Given chronic anemia (baseline hct about 24, would not transfuse with his stable vitals. - Further recs after EGD.
[2019-06-27] MEDS ORDERED: WATER FOR IRRIG STERILE 250 ML BOTTLE IR ONE (13:23)
[2019-06-27] MEDS ORDERED: SODIUM CHLORIDE 0.9% 1000 ML 1,000 ML ONE (13:23)
[2019-06-27] MEDS ORDERED: WATER FOR IRRIG STERILE 1,000 ML BOTTLE ONE (13:23)
[2019-06-27] MEDS ORDERED: SODIUM CHLORIDE 0.9% 1000 ML 1,000 ML IV SCH (14:00)
[2019-06-27] MEDS ORDERED: propofoL 200 MG/20 ML VIAL IV ONE (14:25)
--- NOTE | 2019-06-27 14:40 | Post Operative Note ---
Pre-op diagnosis: Melena Post-op diagnosis: other (DU, Gastritis) Findings: 1. 4mm white-based DU, low risk to rebleed 2. Moderate erosive gastritis, antrum of stomach 3. Small hiatal hernia 4. LA Grade B erosive esophagitis Procedure: EGD with cold biopsy Anesthesia: MAC Surgeon: MAMADOU RICO Estimated blood loss: minimal Pathology: list (1. Gastric antrum, r/o H pylori) Specimen disposition: to lab Condition: stable Disposition: floor (Recs: 1. Protonix daily therapy, and advance to renal diet. 2. OK to d/c home, and may f/u in the clinic to go over biopsy results. 3. Cardiac ASA is OK, but should avoid all other NSAIDs. 4. Will sign off; please call with questions.)
--- NOTE | 2019-06-27 14:46 | Anesthesia Consultation ---
Anesthesia Consult and Med Hx Date of service: 06/27/19 - Airway Anesthetic Teeth Evaluation: Poor, Chipped ROM Head & Neck: Adequate Mental/Hyoid Distance: Adequate Mallampati Class: Class II Intubation Access Assessment: Good - Pre-Operative Health Status ASA Pre-Surgery Classification: ASA3, Emergency Proposed Anesthetic Plan: MAC - Pulmonary Hx Smoking: No Hx Asthma: No COPD: No Hx Pneumonia: No Hx Sleep Apnea: No (high score pricila) - Cardiovascular System Hx Hypertension: Yes (+2FS) Hx Coronary Artery Disease: No Hx Heart Attack/AMI: No Hx Angina: No Hx Percutaneous Transluminal Coronary Angioplasty (PTCA): No Hx Pacemaker: No Hx Internal Defibrillator: No Hx Valvular Heart Disease: No Hx Heart Murmur: No Hx Peripheral Vascular Disease: No - Central Nervous System Hx Seizures: No CVA: No Hx Psychiatric Problems: No - Gastrointestinal Hx Ulcer: No - Endocrine Hx Renal Disease: No Hx End Stage Renal Disease: Yes (Last HD yesterday) Hx Cirrhosis: No Hx Liver Disease: No Hx Hypothyroidism: No Hx Hyperthyroidism: No - Hematic Hx Anemia: Yes Hx Sickle Cell Disease: No - Other Systems Hx Cancer: No
--- NOTE | 2019-06-27 14:46 | Anesthesia Day of Surgery ---
Anesthesia Day of Surgery - Day of Surgery Patient Examined: Yes Patient H&P Reviewed: Yes Patient is NPO: Yes
--- NOTE | 2019-06-27 14:47 | Post Anesthesia Evaluation ---
- Post Anesthesia Evaluation Patient Participated: Yes Airway Patent: Yes Stable Respiratory Function: Yes Nausea/Vomiting: No Temp > 96.8F: Yes Pain Manageable: Yes Adequeate Hydration: Yes Anesthesia Complications: No Block Receding Appropriately: Not Applicable Patient on Ventilator: No
[2019-06-27] MEDS ORDERED: PANTOPRAZOLE 40 MG TAB PO SCH (15:00)
--- NOTE | 2019-06-27 15:21 | Operative Report ---
ENDOSCOPY DOCUMENT PROCEDURE PERFORMED: Esophagogastroduodenoscopy with cold biopsy. PREOPERATIVE DIAGNOSIS: Melena. POSTOPERATIVE DIAGNOSES: Duodenal ulcer and gastritis. ENDOSCOPIST: Tomasz Calvo MD. INSTRUMENT: Olympus video endoscope. MEDICATIONS: MAC anesthesia by [facility]. COMPLICATIONS: No apparent complications. ESTIMATED BLOOD LOSS: Minimal. SPECIMENS: Gastric antrum, rule out H. pylori. IMPLANTS: None. ASSISTANTS: None. CONDITION AT COMPLETION: Stable. TECHNIQUE: The patient was informed of the risks and benefits of the procedure. He signed the informed consent to proceed. He was placed in the left lateral decubitus position. The above sedative medications were given. His vital signs remained stable throughout the procedure. The endoscope was advanced under direct visualization to the second portion of the duodenum. At that point, the bowel was insufflated and the endoscope was slowly withdrawn. FINDINGS: 1. A 4-mm white-based ulcer in the duodenal bulb, would be considered low risk to rebleed as there was no evidence of visible vessel. 2. Moderate erosive gastritis in the antrum of the stomach, status post cold biopsy. 3. Small hiatal hernia. 4. LA grade B erosive esophagitis, likely from chronic acid reflux. RECOMMENDATIONS: 1. Protonix daily therapy and advance to renal diet. 2. Okay to discharge the patient home and the patient may follow up in the clinic to go over the biopsy results. 3. Cardiac aspirin daily therapy is okay, but the patient should avoid all other nonsteroidal anti-inflammatory drugs. 4. We will sign off; please call with questions. JOB# [id number] INGA/NTS
[2019-06-27 15:22] VITALS: BP 115/72
--- NOTE | 2019-06-27 16:33 | Discharge Summary ---
Providers - Providers Date of Admission: 06/26/19 22:42 Date of discharge: 06/27/19 Attending physician: JOHANNY RIVERA 06/26/19 18:15 Consult to Physician [CONS] Urgent Comment: Dr. Craft spoke with Dr. Rico @ [phone] Consulting Provider: MAMADOU RICO Physician Instructions: Reason For Exam: ugib 06/26/19 18:16 Consult to Physician [CONS] Urgent Comment: Dr. Craft spoke with Dr. 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 4mm white-based DU, low risk to rebleed 2. Moderate erosive gastritis, antrum of stomach 3. Small hiatal hernia 4. LA Grade B erosive esophagitis Procedure: EGD with cold biopsy Anesthesia: MAC Surgeon: MAMADOU RICO Estimated blood loss: minimal Pathology: list (1. Gastric antrum, r/o H pylori) Specimen disposition: to lab Condition: stable Disposition: floor (Recs: 1. Protonix daily therapy, and advance to renal diet. 2. OK to d/c home, and may f/u in the clinic to go over biopsy results. 3. Cardiac ASA is OK, but should avoid all other NSAIDs. 4. Will sign off; please call with questions.) Addendum entered and electronically signed by MAMADOU RICO MD 06/27/19 14:43: Addendum to findings: Cold biopsy taken of gastric antrum. Hospital course: Patient is a 53 yo man with a history of hypertension and ESRD on HD MWF s/p renal biopsy on 10/29/2018 (I do not see pathology report in EMR but Dr. Davis's progress note on 10/30/2018 says "Discussed with pathologist biopsy with some concern for cryoglobulinemia however 85% interstitial fibrosis and appears to be end stage kidney cannot rule out autoimmune aetiology versus paraproteinemias.) who presents to [facility] ER with black tarry stools and lightheadedness. At HD center his hemoglobin was report to be 6.6. He was admitted on 06/26/[address] Goss. Hospital coarse: 06/27/2019: Patient went for EGD which found 4mm duodenal ulcer/erosive gastritis/LA grade B erosive esophagitis and small hiatal hernia==> "(Recs: 1. Protonix daily therapy, and advance to renal diet. 2. OK to d/c home, and may f/u in the clinic to go over biopsy results. 3. Cardiac ASA is OK, but should avoid all other NSAIDs. 4. Will sign off; please call with questions.)" per GI. * hgb 7.8-->7.1 (mcv 103), Cr 4.1, normal PT/PTT * +FOBT stool * pCXR Impression: No acute findings Discharge Diagnoses: Acute Upper GI hemorrhage due to Duodenal Ulcer Symptomatic Acute on chronic anemia with blood loss anemia : consulted GI Acute GIB, suspect upper gi: treat with IV PPI ESRD on HD: consulted Nephrology Moderate Malnutrition, poa: supplemental shakes and MVI with iron Disposition: DC-01 TO HOME OR SELFCARE Time spent for discharge: 35 minutes Core Measure Documentation - Palliative Care Palliative Care/ Comfort Measures: Not Applicable - Core Measures Any of the following diagnoses?: none - VTE Discharge Requirements Deep Vein Thrombosis/Pulmonary Embolism Present on Admission: No Has pt received <5 days of overlap therapy or INR<2.0: No Anticoagulant overlap therapy prescribed at discharge: No Contraindication No Overlap Therapy order at DC: Not Indicated Exam - Physical Exam Narrative exam: Gen: WDWN, NAD, Awake, Alert, Orientated HEENT: NCAT, EOMI, PERRL, OP Clear Neck: supple, no adenopathy, no thyromegaly, no JVD CVS/Heart: RRR, normal S1S2, pulses present bilaterally Chest/Lungs: CTA B, Symmetrical chest expansion, good air entry bilaterally GI/Abdomen: soft, NTND, good bowel sounds, no guarding or rebound /Bladder: no suprapubic tenderness, no CVA or paraspinal tenderness Extermity/Skin: no c/c/e, no obvious rash MSK: FROM x 4 Neuro: CN 2-12 grossly intact, no new focal deficits Psych: calm - Constitutional Vitals: Temp Pulse Resp BP Pulse Ox 98.9 F 84 13 115/72 98 06/27/19 14:36 06/27/19 15:06 06/27/19 15:06 06/27/19 15:06 06/27/19 15:06 Plan Activity: other (no strenous activity until cleared by Gi) Diet: renal, other (soft diet and advance in 2 days) Additional Instructions: NO spicy, fried or hot foods for 1-2 weeks. NO ibuprofen/motrin/aleve/naproxen/naprosyn/goody power/Aspirin. NO hot sauce, no tobacco sauce. Sweet potatoes/mash potatoes are good. Miguelina lai is good Follow up with: PRIMARY CARE, [Primary Care Provider] - 3-5 Days MAMADOU RICO MD [Staff Physician] - 7 Days JOON CLIFFORD MD [Staff Physician] - 7 Days Forms: Accompanied Note Prescriptions: Acetaminophen [Acetaminophen TAB] 1 tab PO Q4H PRN #15 tablet PRN Reason: Pain MILD(1-3)/Fever >100.5/RAMIREZ Pantoprazole [Protonix TAB] 40 mg PO QDAY #30 tablet
== END 2019-06-27 18:39 | disposition home or self-care (01) ==
LOC: ED 15:47 → 4A 22:42 → INTOOBSV 22:42
PROVIDERS: ADMIT Internal Medicine; ATTEND Internal Medicine
DX: K92.1 Melena (principal); R42 Dizziness and giddiness; K29.70 Gastritis, unspecified, without bleeding; K44.9 Diaphragmatic hernia without obstruction or gangrene; K20.9 Esophagitis, unspecified; K26.9 Duodenal ulcer, unspecified as acute or chronic, without hemorrhage or perforation; I13.2 Hypertensive heart and chronic kidney disease with heart failure and with stage 5 chronic kidney disease, or end stage renal disease; N18.6 End stage renal disease; I50.9 Heart failure, unspecified; D64.9 Anemia, unspecified; R19.5 Other fecal abnormalities; Z99.2 Dependence on renal dialysis; Z79.899 Other long term (current) drug therapy
CPT/HCPCS: 36415; 43239; 71045; 80048; 80053; 80074; 82271; 82550; 83550; 83735; 85014; 85018; 85025; 85610; 85730; 86850; 86900; 86901; 88305; 88342; 93005; 96365; 96366; 96367; 96376; 99285; C9113; G0378; J2597; J2704; J7030

== ENCOUNTER 2020-07-04 08:37 | Observation (INO) | payer OTHER ==
--- NOTE | 2020-07-04 09:39 | Event Note ---
ED Screening Note Date of service: 07/04/20 Time: 09:39 ED Screening Note: Patient presents with complaints of missed dialysis last Saturday and Saturday Denies any symptoms No swelling noted on exam This initial assessment/diagnostic orders/clinical plan/treatment(s) is/are subject to change based on patients health status, clinical progression and re- assessment by fellow clinical providers in the ED. Further treatment and workup at subsequent clinical providers discretion. Patient/guardian urged not to elope from the ED as their condition may be serious if not clinically assessed and managed. Initial orders include: Labs
[2020-07-04 10:43] LABS: Calcium 8.3 mg/dL (8.4-10.2)
[2020-07-04 10:52] LABS: Basophils # (Auto) 0.1 K/mm3 (0.0-0.1); Basophils % (Auto) 1.8 % (0.0-1.8); Eosinophils # (Auto) 0.1 K/mm3 (0.0-0.4); Hemoglobin 10.5 gm/dl (11.8-15.2); Lymphocytes # (Auto) 1.2 K/mm3 (1.2-5.4); Lymphocytes % (Auto) 18.8 % (13.4-35.0); Mean Corpuscular HGB Conc 33 % (32-34); Mean Corpuscular Volume 107 fl (84-94); Monocytes # (Auto) 0.4 K/mm3 (0.0-0.8); Monocytes % (Auto) 5.9 % (0.0-7.3); Platelet Count 230 K/mm3 (140-440); Red Cell Distribution Width 15.4 % (13.2-15.2)
--- NOTE | 2020-07-04 12:32 | Emergency Department Report ---
ED General Adult HPI - General Chief complaint: Medical Clearance Stated complaint: DIALYSIS NEEDED PUI?: No Time Seen by Provider: 07/04/20 09:38 Source: patient, RN notes reviewed, old records reviewed Mode of arrival: Ambulatory Limitations: No Limitations - History of Present Illness Initial comments: The patient was evaluated in the emergency department for symptoms described in the history of present illness. He/she was evaluated in the context of the global COVID-19 pandemic, which necessitated consideration that the patient might be at risk for infection with the virus that causes COVID-19. Institutional protocols and algorithms that pertain to the evaluation of patients at risk for COVID-19 are in a state of rapid change based on information released by regulatory bodies including the CDC and federal and sta organizations. These policies and algorithms were followed during the patient's care in the emergency department. Please note that these policies, procedures and recommendations changed on a rapid basis. Nephrology: Dr. Johann Broderick The patient is a pleasant 54-year-old gentleman, with a history of end-stage renal disease on hemodialysis. He typically receives hemodialysis Saturday, Saturday, Saturday. His last hemodialysis was last week. He reports that he missed his last sessions last week, Saturday and Saturday, secondary to personal obligations. He presents to the ER today with a request for hemodialysis. He denies physical pain. He denies medical symptoms at this time. He feels like he is at his baseline. He denies Covid symptomatology. He reports that his hemodialysis facility called his family member, and then called him, and was instructed him to present to the emergency room. Improves with: none Worsens with: none Associated Symptoms: denies other symptoms - Related Data Home Medications Medication Instructions Recorded Confirmed Last Taken amLODIPine 5 mg PO DAILY 10/24/18 06/27/19 06/03/19 Previous Rx's Medication Instructions Recorded Last Taken Type Sodium Bicarbonate 1,300 mg PO TID #90 tablet 11/01/18 06/03/19 Rx hydrALAZINE [Apresoline TAB] 25 mg PO Q8HR #60 tab 11/01/18 06/03/19 Rx Acetaminophen [Acetaminophen TAB] 1 tab PO Q4H PRN #15 tablet 06/27/19 Unknown Rx Epoetin West 20,000 Unit [Procrit] 20,000 unit IV CANDI PRN vial 06/27/19 Unknown Rx Pantoprazole [Protonix TAB] 40 mg PO QDAY #30 tablet 06/27/19 Unknown Rx Allergies Allergy/AdvReac Type Severity Reaction Status Date / Time No Known Allergies Allergy Verified 06/26/19 15:51 ED Review of Systems ROS: Stated complaint: DIALYSIS NEEDED Other details as noted in HPI Comment: All other systems reviewed and negative ED Past Medical Hx - Past Medical History Previous Medical History?: Yes Hx Hypertension: Yes (+2FS) Hx Heart Attack/AMI: No Hx Congestive Heart Failure: Yes Hx Diabetes: No Hx Deep Vein Thrombosis: No Hx Pulmonary Embolism: No Hx Liver Disease: No Hx Renal Disease: No Hx Sickle Cell Disease: No Hx Arthritis: No Hx Seizures: No Hx Kidney Stones: No Hx Asthma: No Hx COPD: No Hx Tuberculosis: No Hx Dementia: No Hx HIV: No Additional medical history: ESRD - Surgical History Past Surgical History?: Yes Hx Coronary Stent: No Hx Open Heart Surgery: No Hx Pacemaker: No Hx Internal Defibrillator: No Hx Cholecystectomy: No Hx Appendectomy: No Hx Breast Surgery: No - Social History Smoking Status: Never Smoker - Medications Home Medications: Home Medications Medication Instructions Recorded Confirmed Last Taken Type amLODIPine 5 mg PO DAILY 10/24/18 06/27/19 06/03/19 History Sodium Bicarbonate 1,300 mg PO TID #90 tablet 11/01/18 06/27/19 06/03/19 Rx hydrALAZINE [Apresoline TAB] 25 mg PO Q8HR #60 tab 11/01/18 06/27/19 06/03/19 Rx Acetaminophen [Acetaminophen TAB] 1 tab PO Q4H PRN #15 tablet 06/27/19 Unknown Rx Epoetin West 20,000 Unit [Procrit] 20,000 unit IV CANDI PRN vial 06/27/19 Unknown Rx Pantoprazole [Protonix TAB] 40 mg PO QDAY #30 tablet 06/27/19 Unknown Rx ED Physical Exam - General Limitations: No Limitations General appearance: alert, in no apparent distress - Head Head exam: Present: atraumatic, normocephalic - Eye Eye exam: Present: normal appearance, EOMI. Absent: nystagmus - ENT ENT exam: Present: normal exam, normal orophraynx, mucous membranes moist, normal external ear exam - Neck Neck exam: Present: normal inspection, full ROM. Absent: tenderness, meningismus - Respiratory Respiratory exam: Present: normal lung sounds bilaterally. Absent: respiratory distress, wheezes, rales, rhonchi, stridor, decreased breath sounds - Cardiovascular Cardiovascular Exam: Present: regular rate, normal rhythm, normal heart sounds. Absent: bradycardia, tachycardia, irregular rhythm, systolic murmur, diastolic murmur, rubs, gallop - GI/Abdominal GI/Abdominal exam: Present: soft. Absent: distended, tenderness, guarding, rebound, rigid, pulsatile mass - Rectal Rectal exam: Present: deferred - Extremities Exam Extremities exam: Present: normal inspection (Left upper extremity fistula noted, without redness, pus or streaking), full ROM, other (2+ pulses noted in the bilateral upper and lower extremities. There is no palpable cord. negative Homans sign. Muscular compartments are soft. The pelvis is stable.). Absent: calf tenderness - Back Exam Back exam: Present: normal inspection. Absent: tenderness, CVA tenderness (R), CVA tenderness (L), paraspinal tenderness, vertebral tenderness - Neurological Exam Neurological exam: Present: alert, oriented X3, normal gait, other (No facial droop. Tongue midline. Extraocular movements intact bilaterally. Facial sensation intact to light touch in V1, V2, V3 distribution bilaterally. 5 and a 5 strength in 4 extremities. Sensation intact to light touch in 4 extremities .). Absent: motor sensory deficit - Psychiatric Psychiatric exam: Present: normal affect, normal mood - Skin Skin exam: Present: warm, dry, intact, normal color. Absent: rash ED Course Vital Signs 07/04/20 07/04/20 09:39 13:02 Temperature 98.8 F Pulse Rate 78 Respiratory 20 16 Rate Blood Pressure 146/83 O2 Sat by Pulse 99 Oximetry ED Medical Decision Making - Lab Data Result diagrams: 07/04/20 10:01 07/04/20 10:01 Vital Signs 07/04/20 09:39 Temperature 98.8 F Pulse Rate 78 Respiratory 20 Rate Blood Pressure 146/83 O2 Sat by Pulse 99 Oximetry Lab Results 07/04/20 07/04/20 Range/Units 10:01 10:01 WBC 6.3 (4.5-11.0) K/mm3 RBC 3.00 L (3.65-5.03) M/mm3 Hgb 10.5 L (11.8-15.2) gm/dl Hct 32.0 L (35.5-45.6) % MCV 107 H (84-94) fl MCH 35 H (28-32) pg MCHC 33 (32-34) % RDW 15.4 H (13.2-15.2) % Plt Count 230 (140-440) K/mm3 Lymph % (Auto) 18.8 (13.4-35.0) % Bradley % (Auto) 5.9 (0.0-7.3) % Eos % (Auto) 1.0 (0.0-4.3) % Baso % (Auto) 1.8 (0.0-1.8) % Lymph # (Auto) 1.2 (1.2-5.4) K/mm3 Bradley # (Auto) 0.4 (0.0-0.8) K/mm3 Eos # (Auto) 0.1 (0.0-0.4) K/mm3 Baso # (Auto) 0.1 (0.0-0.1) K/mm3 Seg Neutrophils % 72.5 H (40.0-70.0) % Seg Neutrophils # 4.5 (1.8-7.7) K/mm3 Sodium 141 (137-145) mmol/L Potassium 5.8 H (3.6-5.0) mmol/L Chloride 111.3 H (98-107) mmol/L Carbon Dioxide 12 L (22-30) mmol/L Anion Gap 24 mmol/L BUN 96 H (9-20) mg/dL Creatinine 11.3 H (0.8-1.3) mg/dL Estimated GFR 6 ml/min BUN/Creatinine Ratio 8 % Glucose 113 H (75-100) mg/dL Calcium 8.3 L (8.4-10.2) mg/dL - EKG Data -: EKG Interpreted by Or EKG shows normal: sinus rhythm Rate: normal - EKG Data 07/04/20 13:45 EKG interpreted at 12: 42 Sinus rhythm, 73 bpm. Normal axis, normal intervals, left ventricular hypertrophy. Symmetric peaked T waves, consistent with hyperkalemia. Denies chest pain. This is an abnormal EKG. This is not a STEMI. - Medical Decision Making Differential diagnosis, including but not limited to: Hyperkalemia, azotemia, uremia, metabolic acidosis, missed dialysis, dialysis noncompliance Assessment and plan: 54-year-old gentleman who has not had hemodialysis for the past week, presenting to the ER with a complaint of painless request for hemodialysis without accompanying symptoms. The patient is afebrile with reassuring vital signs and in no acute distress. He has clear lungs at this time. He is found to have hyperkalemia, azotemia, uremia, and metabolic ac idosis, all likely secondary to missing hemodialysis. Case is presented to nephrology on-call, Dr. Broderick. It is advised that patient be admitted for urgent hemodialysis. Dr. Broderick advised that hyperkalemia cocktail is not necessary. Hospital physician, Dr. Herzog, to admit patient to the medical service for the aforementioned. Have discussed this plan of care with the patient, who verbalized understanding, and is amenable to this plan of care. Critical care attestation.: If time is entered above; I have spent that time in minutes in the direct care of this critically ill patient, excluding procedure time. ED Disposition Clinical Impression: ESRD (end stage renal disease), Metabolic acidosis, Azotemia, Uremia, Missed d ialysis Disposition: 09 OP ADMIT IP TO THIS HOSP Is pt being admited?: Yes Does the pt Need Aspirin: No Condition: Good Referrals: PRIMARY CARE, [Primary Care Provider] - 3-5 Days
--- NOTE | 2020-07-04 13:18 | History and Physical Report ---
History of Present Illness Chief complaint: I need dialysis History of present illness: 54 YO Male with ESRD on HD(M,W,F), Noncompliance with Dialysis, HTN, GERD presents to ED for evaluation. Patient reports "I need dialysis". Patient states that he underwent hemodialysis last week. Patient reported missing his past 2 dialysis sessions. Patient transported to [facility] via private vehicle for further care and evaluation. Patient, as well as hyperkalemia without EKG changes. Seen and evaluated in the emergency department. All lab and imaging studies reviewed. Patient found to have end-stage renal disease in need of urgent dialysis. Patient placed in observation status due to increased risk of worsening symptoms and need for dialysis. Nephrology team consulted in ED. Patient denies fever, chills, chest pain, palpitation, productive cough, skin rash, recent ill contact, or known exposure to COVID-19. Prior admission on 06/26/2019 reviewed. All medication listed at time of admission has been reconciled. Past History Past Medical History: ESRD, GERD, hypertension Past Surgical History: Other (Dialysis access) Social history: single. denies: smoking, alcohol abuse Family history: hypertension Medications and Allergies Allergies Allergy/AdvReac Type Severity Reaction Status Date / Time No Known Allergies Allergy Verified 06/26/19 15:51 Home Medications Medication Instructions Recorded Confirmed Last Taken Type amLODIPine 5 mg PO DAILY 10/24/18 06/27/19 06/03/19 History Sodium Bicarbonate 1,300 mg PO TID #90 tablet 11/01/18 06/27/19 06/03/19 Rx hydrALAZINE [Apresoline TAB] 25 mg PO Q8HR #60 tab 11/01/18 06/27/19 06/03/19 Rx Acetaminophen [Acetaminophen TAB] 1 tab PO Q4H PRN #15 tablet 06/27/19 Unknown Rx Epoetin West 20,000 Unit [Procrit] 20,000 unit IV CANDI PRN vial 06/27/19 Unknown Rx Pantoprazole [Protonix TAB] 40 mg PO QDAY #30 tablet 06/27/19 Unknown Rx Review of Systems Constitutional: no weight gain, no fever, no chills, no sweats Ears, nose, mouth and throat: no ear pain, no ear discharge, no nasal congestion Cardiovascular: no chest pain, no orthopnea, no rapid/irregular heart beat, no syncope, no lightheadedness, no shortness of breath Respiratory: no cough, no shortness of breath Gastrointestinal: no nausea, no diarrhea, no constipation, no change in bowel habits, no hematemesis Genitourinary Male: no hematuria, no urinary frequency, no urinary hesitancy, no nocturia Rectal: no pain Musculoskeletal: no neck stiffness, no shooting arm pain, no arm numbness/tingling, no shooting leg pain Integumentary: no rash, no wounds, no boils Neurological: no head injury, no weakness, no tingling, no tremors Psychiatric: no anxiety, no change in sleep habits, no sleep disturbances, no insomnia, no hypersomnia, no change in libido Endocrine: no cold intolerance, no heat intolerance, no polyphagia, no nocturia, no flushing Hematologic/Lymphatic: no easy bruising, no easy bleeding Allergic/Immunologic: no allergic rhinitis, no wheezing Exam - Constitutional Vitals: Temp Pulse Resp BP Pulse Ox 98.8 F 78 16 146/83 99 07/04/20 09:39 07/04/20 09:39 07/04/20 13:02 07/04/20 09:39 07/04/20 09:39 General appearance: Present: no acute distress, well-nourished - EENT Eyes: Present: PERRL ENT: hearing intact, clear oral mucosa - Neck Neck: Present: supple, normal ROM - Respiratory Respiratory effort: normal Respiratory: bilateral: CTA - Cardiovascular Heart Sounds: Present: S1 & S2. Absent: rub, click - Extremities Extremities: pulses symmetrical, No edema Peripheral Pulses: within normal limits - Abdominal General gastrointestinal: Present: soft, non-tender, non-distended, normal bowel sounds Male genitourinary: Present: normal - Integumentary Integumentary: Present: clear, warm, dry - Musculoskeletal Musculoskeletal: gait normal, strength equal bilaterally - Psychiatric Psychiatric: appropriate mood/affect, intact judgment & insight - Neurologic Neurologic: CNII-XII intact, moves all extremities Results - Labs CBC & Chem 7: 07/04/20 10:01 07/04/20 10:01 Labs: Abnormal lab results 07/04/20 07/04/20 Range/Units 10:01 10:01 RBC 3.00 L (3.65-5.03) M/mm3 Hgb 10.5 L (11.8-15.2) gm/dl Hct 32.0 L (35.5-45.6) % MCV 107 H (84-94) fl MCH 35 H (28-32) pg RDW 15.4 H (13.2-15.2) % Seg Neutrophils % 72.5 H (40.0-70.0) % Potassium 5.8 H (3.6-5.0) mmol/L Chloride 111.3 H (98-107) mmol/L Carbon Dioxide 12 L (22-30) mmol/L BUN 96 H (9-20) mg/dL Creatinine 11.3 H (0.8-1.3) mg/dL Glucose 113 H (75-100) mg/dL Calcium 8.3 L (8.4-10.2) mg/dL Assessment and Plan - Patient Problems (1) ESRD (end stage renal disease) Current Visit: Yes Status: Acute Plan to address problem: Nephrology team consulted in ED, dialysis as per renal team, avoid nephrotoxic agents. (2) Accelerated hypertension Current Visit: Yes Status: Acute Plan to address problem: Monitor blood pressure every shift, continue medical management. Resume prehospital antihypertensive therapy. (3) GERD (gastroesophageal reflux disease) Current Visit: Yes Status: Acute Qualifiers: Esophagitis presence: without esophagitis Qualified Code(s): K21.9 - Gastro-esophageal reflux disease without esophagitis Plan to address problem: PPI therapy, supportive care. (4) Metabolic acidosis Current Visit: Yes Status: Acute Plan to address problem: Urgent dialysis as per renal team, BMP, repeat BMP in a.m. (5) DVT prophylaxis Current Visit: Yes Status: Acute Plan to address problem: SCD to bilateral lower extremities while in bed, patient is ambulatory
[2020-07-04] MEDS ORDERED: ONDANSETRON 4 MG/2 ML INJ IV PRN (13:19)
[2020-07-04] MEDS ORDERED: ACETAMINOPHEN 325 MG TAB PO PRN (13:19)
[2020-07-04] MEDS ORDERED: SODIUM CHLORIDE 0.9% 100 ML IV PRN (15:13)
[2020-07-05 06:03] LABS: Basophils # (Auto) 0.1 K/mm3 (0.0-0.1); Basophils % (Auto) 1.7 % (0.0-1.8); Eosinophils # (Auto) 0.1 K/mm3 (0.0-0.4); Eosinophils % (Auto) 1.7 % (0.0-4.3); Hematocrit 31.4 % (35.5-45.6); Hemoglobin 10.6 gm/dl (11.8-15.2); Lymphocytes # (Auto) 1.1 K/mm3 (1.2-5.4); Lymphocytes % (Auto) 21.3 % (13.4-35.0); Mean Corpuscular HGB Conc 34 % (32-34); Mean Corpuscular Volume 103 fl (84-94); Monocytes # (Auto) 0.4 K/mm3 (0.0-0.8); Monocytes % (Auto) 7.3 % (0.0-7.3); Platelet Count 214 K/mm3 (140-440); Red Blood Count 3.04 M/mm3 (3.65-5.03)
[2020-07-05 08:11] VITALS: BP 123/72
--- NOTE | 2020-07-05 09:02 | Consultation ---
History of Present Illness - Reason for Consult Consult date: 07/04/20 end stage renal disease - History of Present Illness This is a 54 year-old man with ESRD who presents for missed HD, hyperkalemia, acidosis. Patient usually dialyzes M[facility] at [facility]. Last HD 06/27, missed on 06/29 and 07/01. Denies any recent issues with HD, including dizziness, lightheadedness, cramping, chest pain on HD. Had HD on arrival on 07/04 for hyperkalemia, acidosis, and volume. Currently, patient denies any issues including dyspnea, edema, access issues, nausea, vomiting, headaches. Feels at normal baseline. Past History Past Medical History: ESRD, GERD, hypertension Past Surgical History: Other (Dialysis access) Social history: single. denies: smoking, alcohol abuse Family history: hypertension Medications and Allergies Allergies Allergy/AdvReac Type Severity Reaction Status Date / Time No Known Allergies Allergy Verified 06/26/19 15:51 Home Medications Medication Instructions Recorded Confirmed Last Taken Type amLODIPine 5 mg PO DAILY 10/24/18 06/27/19 06/03/19 History Sodium Bicarbonate 1,300 mg PO TID #90 tablet 11/01/18 06/27/19 06/03/19 Rx hydrALAZINE [Apresoline TAB] 25 mg PO Q8HR #60 tab 11/01/18 06/27/19 06/03/19 Rx Acetaminophen [Acetaminophen TAB] 1 tab PO Q4H PRN #15 tablet 06/27/19 Unknown Rx Epoetin West 20,000 Unit [Procrit] 20,000 unit IV CANDI PRN vial 06/27/19 Unknown Rx Pantoprazole [Protonix TAB] 40 mg PO QDAY #30 tablet 06/27/19 Unknown Rx Active Meds: Active Medications Acetaminophen (Acetaminophen 325 Mg Tab) 650 mg PO Q4H PRN PRN Reason: Pain MILD(1-3)/Fever >100.5/RAMIREZ Sodium Chloride (Nacl 0.9%) 100 mls @ 999 mls/hr IV CANDI PRN PRN Reason: Hypotension Ondansetron HCl (Ondansetron 4 Mg/2 Ml Inj) 4 mg IV Q8H PRN PRN Reason: Nausea And Vomiting Sodium Chloride (Sodium Chloride 0.9% 10 Ml Flush Syringe) 10 ml IV BID ESTER Last Admin: 07/04/20 21:49 Dose: 10 ml Documented by: Sodium Chloride (Sodium Chloride 0.9% 10 Ml Flush Syringe) 10 ml IV PRN PRN PRN Reason: LINE FLUSH Review of Systems All systems: negative (as per HPI) Exam - Vital Signs Vital signs: Vital Signs Temp Pulse Resp BP Pulse Ox 98.8 F 78 20 146/83 99 07/04/20 09:39 07/04/20 09:39 07/04/20 09:39 07/04/20 09:39 07/04/20 09:39 - Physical Exam Narrative exam: Constitutional: no acute distress Head: NC/AT Neck: supple Lungs: clear to auscultation CV: RRR, no M/R/G Abdomen: soft, non-tender, bowel sounds present Back: nontender Extremities: no edema, pulses WNL Skin: intact Neuro: no focal deficits, alert and oriented x4 Results - Lab Results 07/05/20 04:55 07/05/20 04:55 Most recent lab results Calcium 8.0 mg/dL (8.4-10.2) L 07/05/20 04:55 Assessment and Plan This is a 54 year old man who presents with need for HD, hyperkalemia/acidosis. # ESRD: HD on 07/04 for hyperkalemia, acidosis in setting of missed HD. No need for additional HD today as labs stable. Next HD 07/06, can be done as outpatient, did speak with patient's insurance case manager and is stable for discharge from renal perspective. - daily labs - renally dose meds - avoid nephrotoxins - renal diet # Anemia: last hemoglobin >10, no indication for ESAs acutely # HTN: UF as tolerated. BP stable currently # Secondary Hyperparathyroidism: continue home binders as needed
--- NOTE | 2020-07-05 09:34 | Discharge Summary ---
Providers - Providers Date of Admission: 07/04/20 13:19 Date of discharge: 07/05/20 Attending physician: JOHNNIE WALL 07/04/20 12:22 Consult to Physician [CONS] Urgent Comment: Consulting Provider: LEIGH ANN VALLES Physician Instructions: Reason For Exam: esrd Primary care physician: [employer] Hospitalization Condition: Good Hospital course: 4 YO Male with ESRD on HD(M,W,F), Noncompliance with Dialysis, HTN, GERD presents to ED for evaluation. Patient reports "I need dialysis". Patient states that he underwent hemodialysis last week. Patient reported missing his past 2 dialysis sessions. Patient transported to [facility] via private vehicle for further care and evaluation. Patient, as well as hyperkalemia without EKG changes. Seen and evaluated in the emergency department. All lab and imaging studies reviewed. Patient found to have end-stage renal disease in need of urgent dialysis. Patient placed in observation status due to increased risk of worsening symptoms and need for dialysis. Nephrology team consulted in ED. Patient denies fever, chills, chest pain, palpitation, productive cough, skin rash, recent ill contact, or known exposure to COVID-19. Prior admission on 06/26/2019 reviewed. All medication listed at time of admission has been reconciled. Hospital course Patient had HD immediately after admission and has been feeling great. He is scheduled to have another HD tomorrow. He is no longer short of breath. He will be discharged home to continue HD. He agrees with plan Disposition: DC-01 TO HOME OR SELFCARE Final Discharge Diagnosis (Prints w/discharge instructions): Fluid overload Time spent for discharge: 25 mins Core Measure Documentation - Palliative Care Palliative Care/ Comfort Measures: Not Applicable - Core Measures Any of the following diagnoses?: none Exam - Constitutional Vitals: Temp Pulse Resp BP Pulse Ox 98.6 F 74 18 123/72 99 07/05/20 07:26 07/05/20 07:26 07/05/20 07:26 07/05/20 07:26 07/05/20 07:26 General appearance: Present: no acute distress, well-nourished - EENT Eyes: Present: PERRL ENT: hearing intact, clear oral mucosa - Neck Neck: Present: supple, normal ROM - Respiratory Respiratory effort: normal Respiratory: bilateral: CTA - Cardiovascular Heart Sounds: Present: S1 & S2. Absent: rub, click - Extremities Extremities: pulses symmetrical, No edema Peripheral Pulses: within normal limits - Abdominal General gastrointestinal: Present: soft, non-tender, non-distended, normal bowel sounds Male genitourinary: Present: normal - Integumentary Integumentary: Present: clear, warm, dry - Musculoskeletal Musculoskeletal: gait normal, strength equal bilaterally - Psychiatric Psychiatric: appropriate mood/affect, intact judgment & insight - Neurologic Neurologic: CNII-XII intact, moves all extremities Plan Diet: renal Additional Instructions: Continue HD as scheduled. Continue home medications Follow up with: PRIMARY CARE, [Primary Care Provider] - 3-5 Days
--- NOTE | 2020-07-07 17:09 | Electrocardiograph Report ---
[facility] [place] Test Date: 2020-07-04 Test Time: 12:41:52 Pat Name: ARIEL GOODEN Department: Room: A478 Gender: M Literacy Consultant: YO GARCIA : 1965 Requested By: GEORGINA FOSTER Order Number: [id number] Reading MD: Serafin Bruce Measurements Intervals [place] Rate: 72 P: 78 IA: 165 QRS: 72 QRSD: 76 T: 69 QT: 392 QTc: 430 Interpretive Statements Sinus rhythm Left ventricular hypertrophy ST elev, probable normal early repol pattern No previous ECG available for comparison Electronically Signed On 07-07-2020 17:08:59 EDT by Serafin Bruce
== END 2020-07-05 14:41 | disposition home or self-care (01) ==
LOC: ED 08:37 → 3A 13:19 → 4A 18:31
PROVIDERS: ADMIT Internal Medicine; ATTEND Internal Medicine
DX: I13.2 Hypertensive heart and chronic kidney disease with heart failure and with stage 5 chronic kidney disease, or end stage renal disease (principal); I50.9 Heart failure, unspecified; N18.6 End stage renal disease; E87.2 Acidosis; D63.1 Anemia in chronic kidney disease; N25.81 Secondary hyperparathyroidism of renal origin; K21.9 Gastro-esophageal reflux disease without esophagitis; R79.89 Other specified abnormal findings of blood chemistry; Z99.2 Dependence on renal dialysis; Z98.890 Other specified postprocedural states; Z79.899 Other long term (current) drug therapy
CPT/HCPCS: 36415; 80048; 85025; 93005; 99284; G0378

== ENCOUNTER 2021-01-07 10:49 | Emergency (ER) | payer OTHER ==
--- NOTE | 2021-01-07 11:47 | XRay Report ---
RIGHT KNEE 3 VIEW(S) INDICATION / CLINICAL INFORMATION: pain and swelling COMPARISON: None available. FINDINGS: BONES / JOINT(S): There is an intra-articular lateral tibial plateau fracture. Large hemarthrosis. SOFT TISSUES: Soft tissue swelling. ADDITIONAL FINDINGS: None. Signer Name: Junaid Prater DO Signed: 01/07/2021 11:43 AM Workstation Name: [id number]
[2021-01-07 12:07] VITALS: BP 121/80
--- NOTE | 2021-01-07 12:16 | Emergency Department Report ---
ED Lower Extremity HPI - General Chief Complaint: Extremity Injury, Lower Stated Complaint: RGHT LEG PAIN Time Seen by Provider: 01/07/21 11:09 Source: patient Mode of arrival: Wheelchair Limitations: Physical Limitation - History of Present Illness Initial Comments: The patient was evaluated in the emergency department for symptoms described in the history of present illness. He/she was evaluated in the context of the global COVID-19 pandemic, which necessitated consideration that the patient might be at risk for infection with the virus that causes COVID-19. Institutional protocols and algorithms that pertain to the evaluation of patients at risk for COVID-19 are in a state of rapid change based on information released by regulatory bodies including the CDC and federal and state organizations. These policies and algorithms were followed during the patient's care in the emergency department. Please note that these policies, procedures and recommendations changed on a rapid basis. 55-year-old -[place] male presents to the emergency room complaining of right knee pain. Patient states [place] [employer] and he did not see a hole in the ground stepped in and fell in his right knee felt like it was coming out of the socket. Patient reports he is having difficulty bearing weight pain is a 10 out of 10 keeps coming and going. He has no known drug allergies. He does have a history of end-stage renal disease and is on dialysis Saturday and Saturday. Patient reports he is vaccinated for Covid as well as a flu. He denies any known drug allergies states that he was dropped off. Complaint: knee injury Onset/Timin -: days(s) Injury: Knee: Right Type of Injury: inversion Place: street/outdoors Severity: severe Severity scale (0 -10): 10 Improves With: nothing Worsens With: weight bearing, movement, palpation Context: fall Associated Symptoms: swelling - Related Data Home Medications Medication Instructions Recorded Confirmed Last Taken amLODIPine 5 mg PO DAILY 10/24/18 06/27/19 06/03/19 Previous Rx's Medication Instructions Recorded Last Taken Type Sodium Bicarbonate 1,300 mg PO TID #90 tablet 11/01/18 06/03/19 Rx hydrALAZINE [Apresoline TAB] 25 mg PO Q8HR #60 tab 11/01/18 06/03/19 Rx Acetaminophen [Acetaminophen TAB] 1 tab PO Q4H PRN #15 tablet 06/27/19 Unknown Rx Epoetin West 20,000 Unit [Procrit] 20,000 unit IV CANDI PRN vial 06/27/19 Unknown Rx Pantoprazole [Protonix TAB] 40 mg PO QDAY #30 tablet 06/27/19 Unknown Rx Oxycodone HCl/Acetaminophen 1 each PO Q6HR PRN #15 tablet 01/07/21 Unknown Rx [Percocet 7.5/325 mg] Allergies Allergy/AdvReac Type Severity Reaction Status Date / Time No Known Allergies Allergy Verified 06/26/19 15:51 ED Review of Systems ROS: Stated complaint: RGHT LEG PAIN Other details as noted in HPI Comment: All other systems reviewed and negative ED Past Medical Hx - Past Medical History Hx Hypertension: Yes (+2FS) Hx Heart Attack/AMI: No Hx Congestive Heart Failure: Yes Hx Diabetes: No Hx Deep Vein Thrombosis: No Hx Pulmonary Embolism: No Hx Liver Disease: No Hx Renal Disease: No Hx Sickle Cell Disease: No Hx Arthritis: No Hx Seizures: No Hx Kidney Stones: No Hx Asthma: No Hx COPD: No Hx Tuberculosis: No Hx Dementia: No Hx HIV: No Additional medical history: ESRD - Surgical History Hx Coronary Stent: No Hx Open Heart Surgery: No Hx Pacemaker: No Hx Internal Defibrillator: No Hx Cholecystectomy: No Hx Appendectomy: No Hx Breast Surgery: No - Social History Smoking Status: Never Smoker - Medications Home Medications: Home Medications Medication Instructions Recorded Confirmed Last Taken Type amLODIPine 5 mg PO DAILY 10/24/18 06/27/19 06/03/19 History Sodium Bicarbonate 1,300 mg PO TID #90 tablet 11/01/18 06/27/19 06/03/19 Rx hydrALAZINE [Apresoline TAB] 25 mg PO Q8HR #60 tab 11/01/18 06/27/19 06/03/19 Rx Acetaminophen [Acetaminophen TAB] 1 tab PO Q4H PRN #15 tablet 06/27/19 Unknown Rx Epoetin West 20,000 Unit [Procrit] 20,000 unit IV CANDI PRN vial 06/27/19 Unknown Rx Pantoprazole [Protonix TAB] 40 mg PO QDAY #30 tablet 06/27/19 Unknown Rx Oxycodone HCl/Acetaminophen 1 each PO Q6HR PRN #15 tablet 01/07/21 Unknown Rx [Percocet 7.5/325 mg] ED Physical Exam - General Limitations: Physical Limitation General appearance: alert, in no apparent distress - Head Head exam: Present: atraumatic, normocephalic - Eye Eye exam: Present: normal appearance - ENT ENT exam: Present: normal external ear exam - Neck Neck exam: Present: normal inspection, full ROM - Respiratory Respiratory exam: Absent: respiratory distress, accessory muscle use - Cardiovascular Cardiovascular Exam: Present: regular rate - Expanded Lower Extremity Exam Right Knee exam: Present: tenderness, swelling. Absent: full ROM Lower Leg exam: Present: normal inspection Ankle exam: Present: normal inspection Foot/Toe exam: Present: normal inspection Neuro vascular tendon exam: Present: no vascular compromise Gait: Positive: not tested/not observed - Back Exam Back exam: Present: normal inspection - Neurological Exam Neurological exam: Present: alert, oriented X3 - Psychiatric Psychiatric exam: Present: normal affect, normal mood - Skin Skin exam: Present: warm, dry, intact, normal color. Absent: rash ED Lower Extremity MDM - Radiology Data Radiology results: report reviewed Study Comments [address] [address] XRay Report Signed Patient: ARIEL GOODEN JUNIOR MR# : [id number] : 1965 Acct:[id number] Age/Sex: 55 / M ADM Date: 01/07/21 Loc: ED Attending Dr: Ordering Physician: ROSEANNE RANDLE Date of Service: 01/07/21 Procedure(s): XR knee 3V RT Accession Number(s): [id number] cc: ROSEANNE RANDLE Fluoro Time In Minutes: RIGHT KNEE 3 VIEW(S) INDICATION / CLINICAL INFORMATION: pain and swelling COMPARISON: None available. FINDINGS: BONES / JOINT(S): There is an intra-articular lateral tibial plateau fracture. Large hemarthrosis. SOFT TISSUES: Soft tissue swelling. ADDITIONAL FINDINGS: None. Signer Name: Junaid Fontenot DO Signed: 01/07/2021 11:43 AM Workstation Name: [id number] Transcribed By: MONTY Dictated By: JUNAID FONTENOT DO Electronically Authenticated By: JUNAID FONTENOT DO Signed Date/Time: 01/07/21 1143 DD/ 1142 TD/TT: - Medical Decision Making 55-year-old -[place] male presents to the emergency room complaining of right knee pain. Patient [place] [employer] and he did not see a hole in the ground stepped in and fell in his right knee felt like it was coming out of the socket. Patient reports he is having difficulty bearing weight pain is a 10 out of 10 keeps coming and going. He has no known drug allergies. He does have a history of end-stage renal disease and is on dialysis Saturday and Saturday. Patient reports he is vaccinated for Covid as well as a flu. He denies any known drug allergies states that he was dropped off. X-ray of right knee and Parker for pain management. Critical care attestation.: If time is entered above; I have spent that time in minutes in the direct care of this critically ill patient, excluding procedure time. ED Disposition Clinical Impression: Right knee injury, Hemarthrosis involving knee joint Disposition: HOME / SELF CARE / HOMELESS Is pt being admited?: No Does the pt Need Aspirin: No Condition: Stable Additional Instructions: Please wear knee immobilizer and do not place any weightbearing to this knee. You are to use your crutches to help ambulate. It is highly important that you follow-up with an orthopedic provider in the next 3 to 5 days. Elevate ice. Pain medication as needed do not operate heavy machinery while taking pain medication. Prescriptions: Oxycodone HCl/Acetaminophen [Percocet 7.5/325 mg] 1 each PO Q6HR PRN #15 tablet PRN Reason: Pain Referrals: BRYANNA CHEEK MD [Staff Physician] - 3-5 Days Forms: Work/School Release Form(ED) Time of Disposition: 12:25
[2021-01-07] MEDS ORDERED: HYDROcodone/ACETAMINOPHEN 7.5-325MG TAB PO ONE (12:17)
== END 2021-01-07 13:58 | disposition home or self-care (01) ==
LOC: ED 10:49
DX: S89.91XA Unspecified injury of right lower leg, initial encounter (principal); M25.061 Hemarthrosis, right knee; Z86.79 Personal history of other diseases of the circulatory system; I13.0 Hypertensive heart and chronic kidney disease with heart failure and stage 1 through stage 4 chronic kidney disease, or unspecified chronic kidney disease; I50.9 Heart failure, unspecified; N18.6 End stage renal disease; W19.XXXA Unspecified fall, initial encounter; Y93.89 Activity, other specified; Y92.89 Other specified places as the place of occurrence of the external cause; Y99.8 Other external cause status
CPT/HCPCS: 99283

== ENCOUNTER 2021-10-27 10:52 | Emergency (ER) | payer OTHER ==
[2021-10-27] MEDS ORDERED: HYDROcodone/ACETAMINOPHEN 5-325 MG TAB PO ONE (11:44)
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
[2021-10-27] MEDS ORDERED: TETANUS,DIPHTHERIA TOXOID ADULT 0.5 ML INJ IM ONE (12:00)
--- NOTE | 2021-10-27 12:53 | XRay Report ---
LEFT HAND 2 VIEWS INDICATION: fall,pain, swelling. COMPARISON: None. IMPRESSION: No acute osseous or soft tissue abnormality. No significant DJD. LEFT KNEE 3 VIEWS INDICATION: fall,pain, swelling. COMPARISON: None. IMPRESSION: No acute osseous injury or bone lesion is detected. No significant joint pathology. Ther e is suggestion of a moderate joint effusion on the lateral view. There is chronic spurring from the inferior border of the patella is likely related to chronic injury. Signer Name: Gabe Lopes Jr, MD Signed: 10/27/2021 12:49 PM Workstation Name: [id number]
[2021-10-27] MEDS ORDERED: cloNIDine 0.1 MG TAB PO ONE (13:22)
[2021-10-27] MEDS ORDERED: hydrALAZINE 25 MG TAB PO ONE (13:22)
[2021-10-27 15:03] VITALS: BP 214/112
== END 2021-10-27 15:04 | disposition home or self-care (01) ==
LOC: ED 10:52
DX: S60.512A Abrasion of left hand, initial encounter (principal); M25.462 Effusion, left knee; I13.2 Hypertensive heart and chronic kidney disease with heart failure and with stage 5 chronic kidney disease, or end stage renal disease; N18.6 End stage renal disease; I50.9 Heart failure, unspecified; Z99.2 Dependence on renal dialysis; Z79.899 Other long term (current) drug therapy; V19.9XXA Pedal cyclist (driver) (passenger) injured in unspecified traffic accident, initial encounter; Y93.89 Activity, other specified; Y92.488 Other paved roadways as the place of occurrence of the external cause; Y99.8 Other external cause status
CPT/HCPCS: 90714; 99283